=== PATIENT | female | born 1965 | race Two or more races ===

== ENCOUNTER 2023-11-11 13:35 | Emergency (ER) | payer MEDICARE, OTHER ==
[2023-11-11 14:02] VITALS: BP 116/70; PULSE 56; RESP 18; TEMP 98; BMI 26.3
== END 2023-11-11 15:58 | disposition home or self-care (01) ==
LOC: JERFT 13:35
DX: H43.811 Vitreous degeneration, right eye (principal)
CPT/HCPCS: 99282-25